=== PATIENT | male | born 1935 | race Caucasian/White ===

== ENCOUNTER 2017-03-06 10:22 | Day surgery (SDC) | payer OTHER, BC ==
[~2017-03-06] VITALS: Ht 180.3 cm; Wt 76.2 kg
[~2017-03-06 10:22] MED LIST: ALLOPURINOL100 MG PO; ELIQUIS5 MG PO; FINASTERIDE5 MG PO; FOLIC ACID1 MG PO; LISINOPRIL2.5 MG PO; LO-DOSE ASPIRIN81 M1 PO; LOPRESSOR25 MG PO; LOVASTATIN40 MG PO; NIACIN500 M4 PO; VERAPAMIL HCL180 MG PO
[2017-03-06 11:41] VITALS: BP 113/78
[2017-03-06 15:40] VITALS: BP 102/71
[2017-03-06 16:25] VITALS: BP 101/56
== END 2017-03-06 16:32 | disposition home or self-care (01) ==
LOC: SDC 10:22
DX: N13.30 Unspecified hydronephrosis (principal); R31.0 Gross hematuria; N40.0 Benign prostatic hyperplasia without lower urinary tract symptoms; D69.6 Thrombocytopenia, unspecified; I12.9 Hypertensive chronic kidney disease with stage 1 through stage 4 chronic kidney disease, or unspecified chronic kidney disease; N18.3 Chronic kidney disease, stage 3 (moderate); Z87.891 Personal history of nicotine dependence; Z79.82 Long term (current) use of aspirin; Z95.0 Presence of cardiac pacemaker
CPT/HCPCS: 74420; C2625; J0131; J0690; J1580; J2405; J3010; J7050